=== PATIENT | male | born 1960 | race Caucasian/White ===

== ENCOUNTER 2018-04-07 23:06 | Observation (INO) | payer MEDICAID ==
[~2018-04-07] VITALS: Ht 172.7 cm; Wt 82.8 kg
[2018-04-07] MEDS ORDERED: ESCI20TA PO (23:21)
[2018-04-07] MEDS ORDERED: LORA10TA62 PO (23:21)
[2018-04-07] MEDS ORDERED: TAMS0.4C2 PO (23:21)
[2018-04-07] MEDS ORDERED: LEVO112T4 PO (23:21)
[2018-04-07] MEDS ORDERED: ATOR40TA78 PO (23:22)
[2018-04-07] MEDS ORDERED: GABA300C10 PO (23:22)
[2018-04-07] MEDS ORDERED: METH750T2 PO (23:22)
[2018-04-07] MEDS ORDERED: KETOROLAC 30 MG/1 ML IVPush ONE (23:30)
--- NOTE | 2018-04-07 23:42 | NUR ---
TASK RN: BP EQUAL BILAT. SECOND PIV INITIATED, LABS DRAWN. NSR ON MONITOR. PT MEDICATED PER EMAR FOR PAIN Addendum: 04/08/18 at 0107 by LWEGENER PT MEDICATED BY PRIMARY ERIN VAZQUEZ
[2018-04-07] MEDS ORDERED: KETOROLAC 30 MG/1 ML ONE (23:44)
[2018-04-07 23:47] LABS: BASOPHILS # (AUTO) 0.07 x10^3/uL (0-0.1); BASOPHILS % (AUTO) 1 % (0-1); EOSINOPHILS # (AUTO) 0.14 x10^3/uL (0-0.4); EOSINOPHILS % (AUTO) 2 % (1-7); LYMPHOCYTES # (AUTO) 2.21 x10^3/uL (1-3.4); LYMPHOCYTES % (AUTO) 24 % (22-44); MD NO; MEAN CORPUSCULAR HEMOGLOBIN 34.7 pg (27.5-34.5); MEAN CORPUSCULAR HGB CONC 34.6 g/dL (33.2-36.2); MEAN CORPUSCULAR VOLUME 100.4 fL (81-97); MONOCYTES # (AUTO) 0.73 x10^3/uL (0.2-0.8); MONOCYTES % (AUTO) 8 % (2-9); NEUTROPHILS # (AUTO) 5.93 x10^3/uL (1.8-6.8); NEUTROPHILS % (AUTO) 65 % (42-75); PLATELET COUNT 273 x10^3/uL (130-400); RED BLOOD COUNT 4.56 x10^6/uL (4.38-5.82); RED CELL DISTRIBUTION WIDTH 15.2 % (9.4-14.8)
[2018-04-07] MEDS ORDERED: TIOT4MIS3 INH (23:50)
--- NOTE | 2018-04-07 23:53 | NUR ---
PT REPORTS CENTER STABBING CHEST PAIN THAT GOES TO BACK 10/10 PAIN VS STABLE. ENVIRONMENTAL COMPLIANCE OFFICER ON. NSR NOTED. CALL LIGHT IN PLACE. WILL CONTINUE TO MONITOR.
[2018-04-08] LABS: ALANINE AMINOTRANSFERASE 33 U/L (12-78); ALBUMIN 4.3 g/dL (3.4-5.0); ANION GAP 7 mmol/L (5-15); CALCIUM 8.9 mg/dL (8.5-10.1); CHLORIDE 111 mmol/L (98-107)
[2018-04-08 00:04] LABS: ALKALINE PHOSPHATASE 60 U/L (45-117); BILIRUBIN,TOTAL 0.8 mg/dL (0.2-1.0); TOTAL PROTEIN 7.8 g/dL (6.4-8.2); TROPONIN I < 0.015 ng/mL (0.000-0.045)
[2018-04-08] MEDS ORDERED: ONDANSETRON 2MG/ML, 2ML ONE ×2 (00:08→11:54)
[2018-04-08] MEDS ORDERED: MORPHINE SULFATE 4 MG/ML, 1ML ONE (00:08)
--- NOTE | 2018-04-08 00:17 | NUR ---
TASK RN: PT REPORTS IMPROVEMENT IN PAIN WITH MEDICATIONS YET CONTINUES TO REPORT A HEAVY CHEST PRESSURE, "I FEEL LIKE A DUMP TRUCK IS ON ME" AND NAUSEA. ERP AWARE. ORDERS RECEIVED FOR PAIN/NAUSEA MEDICATIONS. REPEAT EKG COMPLETE
[2018-04-08] MEDS ORDERED: ONDANSETRON 2MG/ML, 2ML IVPush ONE (00:30)
[2018-04-08] MEDS ORDERED: SODIUM CHLORIDE FLUSH 10ML SYR IVF ONE (00:30)
[2018-04-08] MEDS ORDERED: MORPHINE SULFATE 4 MG/ML, 1ML IVPush PRN (00:30)
[2018-04-08] MEDS ORDERED: OMNIPAQUE 350 MG/ML, 100ML BOTTLE ONE (00:45)
--- NOTE | 2018-04-08 00:55 | NUR ---
PT RESTING IN ROOM. PLASTIC MANAGER ON. SINUS TACH NOTED. CALL LIGHT IN PLACE. WILL CONTINUE TO MONITOR.
--- NOTE | 2018-04-08 01:21 | NUR ---
NADINE LOZOYA IN ROOM UPDATING PATIENT.
--- NOTE | 2018-04-08 01:46 | NUR ---
FAMILY TOOK PT'S MEDS HOME REPORT CALLED INTO [facility] WHITLOCK
--- NOTE | 2018-04-08 01:49 | NUR ---
GIRLFRIEND PHONE NUMBER: [phone]
[2018-04-08 02:21] VITALS: BP 105/71
[2018-04-08] MEDS ORDERED: SODIUM CHLORIDE 0.9% 1,000 ML IV SCH (03:07)
[2018-04-08] MEDS ORDERED: morphine SULFATE 10 MG/ML, 1ML IVPush PRN (03:30)
[2018-04-08] MEDS ORDERED: OXYcodone IR 5MG TABLET PO PRN (03:30)
[2018-04-08] MEDS ORDERED: BISACODYL 10 MG SUPP PR PRN (03:30)
[2018-04-08] MEDS ORDERED: DOCUSATE 100 MG CAPSULE PO PRN (03:30)
[2018-04-08] MEDS ORDERED: hydrALAzine 20 MG/ML, 1ML IVPush PRN (03:30)
[2018-04-08] MEDS ORDERED: POLYETHYLENE GLYCOL 17 GM PACKET PO PRN (03:30)
[2018-04-08] MEDS ORDERED: ACETAMINOPHEN 325 MG TABLET PO PRN (03:30)
[2018-04-08] MEDS ORDERED: LABETALOL 5MG/ML, 20ML IVPush PRN (03:30)
[2018-04-08] MEDS ORDERED: PROMETHAZINE 25 MG/ML, 1ML IM PRN (03:30)
[2018-04-08] MEDS ORDERED: ONDANSETRON ODT 4 MG PO PRN (03:30)
[2018-04-08] MEDS ORDERED: ONDANSETRON 2MG/ML, 2ML IVPush PRN (03:30)
[2018-04-08] MEDS ORDERED: NITROGLYCERIN 0.4 MG BOTTLE (25 TABS) SL PRN (03:30)
[2018-04-08] MEDS ORDERED: GABAPENTIN 300 MG CAPSULE PO PRN (03:30)
[2018-04-08 03:44] LABS: HEMOGLOBIN A1C 5.3 % (4.2-6.3)
[2018-04-08] MEDS: GABAPENTIN 300 MG CAPSULE PO SCH ×4 (04:00→20:48)
[2018-04-08] MEDS: HEPARIN 5,000 UNITS/ML, 1ML SQ SCH ×3 (04:00→20:48)
[2018-04-08 04:02] LABS: FREE T4 (FREE THYROXINE) 0.59 ng/dL (0.76-1.46)
[2018-04-08] MEDS ORDERED: ALBUTEROL/IPRATROPIUM 2.5MG/0.5MG, 3 ML NPPB PRN (04:30)
[2018-04-08 05:21] LABS: TROPONIN I 0.017 ng/mL (0.000-0.045)
[2018-04-08] MEDS: ASPIRIN 325 MG TABLET EC PO SCH (05:38)
[2018-04-08] MEDS: ALBUTEROL/IPRATROPIUM 2.5MG/0.5MG, 3 ML NPPB SCH ×4 (06:15→19:20)
[2018-04-08] MEDS ORDERED: ALBUTEROL/IPRATROPIUM 2.5MG/0.5MG, 3 ML NPPB SCH (07:00)
[2018-04-08 07:44] VITALS: BP 94/64
[2018-04-08] MEDS ORDERED: LEVOTHYROXINE 112 MCG TABLET PO SCH (09:00)
[2018-04-08] MEDS ORDERED: REGADENOSON 0.4 MG/5 ML SYRINGE ONE (09:48)
[2018-04-08] MEDS: TAMSULOSIN 0.4 MG CAP.ER.24H PO SCH (09:50)
[2018-04-08] MEDS: METHOCARBAMOL 750 MG TABLET PO SCH ×3 (09:50→20:48)
[2018-04-08] MEDS: CITALOPRAM 20 MG TABLET PO SCH (09:50)
[2018-04-08] MEDS: LORATADINE 10 MG TABLET PO SCH (09:51)
[2018-04-08 13:11] LABS: TROPONIN I < 0.015 ng/mL (0.000-0.045)
[2018-04-08 14:29] VITALS: BP 94/62
[2018-04-08 15:38] LABS: ALBUMIN 3.5 g/dL (3.4-5.0); ANION GAP 7 mmol/L (5-15); CALCIUM 8.5 mg/dL (8.5-10.1); CHLORIDE 111 mmol/L (98-107); CREATININE 1.16 mg/dL (0.7-1.3)
[2018-04-08 15:42] LABS: TROPONIN I < 0.015 ng/mL (0.000-0.045)
[2018-04-08 19:13] VITALS: BP 95/62
[2018-04-08] MEDS ORDERED: ATORVASTATIN 40 MG TABLET PO SCH (21:00)
[2018-04-09 00:36] VITALS: BP 103/62
[2018-04-09] MEDS: ASPIRIN 325 MG TABLET EC PO SCH (05:17)
[2018-04-09] MEDS: HEPARIN 5,000 UNITS/ML, 1ML SQ SCH ×2 (05:18→13:00)
[2018-04-09] MEDS ORDERED: LEVOTHYROXINE 125 MCG TABLET PO SCH (06:00)
[2018-04-09 06:38] VITALS: BP 139/89
[2018-04-09] MEDS: ALBUTEROL/IPRATROPIUM 2.5MG/0.5MG, 3 ML NPPB SCH (06:44)
[2018-04-09 07:09] LABS: BASOPHILS # (AUTO) 0.08 x10^3/uL (0-0.1); BASOPHILS % (AUTO) 1 % (0-1); EOSINOPHILS # (AUTO) 0.19 x10^3/uL (0-0.4); EOSINOPHILS % (AUTO) 4 % (1-7); LYMPHOCYTES # (AUTO) 1.71 x10^3/uL (1-3.4); LYMPHOCYTES % (AUTO) 30 % (22-44); MD SCAN; MEAN CORPUSCULAR HEMOGLOBIN 33.9 pg (27.5-34.5); MEAN CORPUSCULAR HGB CONC 33.5 g/dL (33.2-36.2); MEAN CORPUSCULAR VOLUME 101.2 fL (81-97); MEAN PLATELET VOLUME 8.3 fL (7.4-10.4); MONOCYTES # (AUTO) 0.58 x10^3/uL (0.2-0.8); MONOCYTES % (AUTO) 10 % (2-9); NEUTROPHILS # (AUTO) 3.06 x10^3/uL (1.8-6.8); NEUTROPHILS % (AUTO) 54 % (42-75); PLATELET COUNT 228 x10^3/uL (130-400); RED BLOOD COUNT 3.92 x10^6/uL (4.38-5.82); RED CELL DISTRIBUTION WIDTH 14.8 % (9.4-14.8)
[2018-04-09 07:18] LABS: ALBUMIN 3.5 g/dL (3.4-5.0); ANION GAP 6 mmol/L (5-15); CALCIUM 8.5 mg/dL (8.5-10.1); CHLORIDE 111 mmol/L (98-107)
[2018-04-09 07:24] LABS: ALANINE AMINOTRANSFERASE 25 U/L (12-78); ALKALINE PHOSPHATASE 46 U/L (45-117); BILIRUBIN,TOTAL 0.9 mg/dL (0.2-1.0); CHOL/HDL RATIO 4.5; CHOLESTEROL, TOTAL 231 mg/dL (140-239); CREATININE 0.95 mg/dL (0.7-1.3); HDL CHOL % 22 % (26-37); HDL CHOLESTEROL (DIRECT) 51 mg/dL (40-60); LDL CHOLESTEROL,CALCULATED 169 mg/dL (54-169); LDL/HDL RATIO 3.3 (0.5-3.0); TOTAL PROTEIN 6.5 g/dL (6.4-8.2); TRIGLYCERIDES 56 mg/dL (50-200); VLDL CHOLESTEROL 11 mg/dL (0-25)
[2018-04-09] MEDS: LORATADINE 10 MG TABLET PO SCH (07:56)
[2018-04-09] MEDS: CITALOPRAM 20 MG TABLET PO SCH (07:56)
[2018-04-09] MEDS: GABAPENTIN 300 MG CAPSULE PO SCH ×2 (07:56→16:00)
[2018-04-09] MEDS: TAMSULOSIN 0.4 MG CAP.ER.24H PO SCH (07:56)
[2018-04-09] MEDS: METHOCARBAMOL 750 MG TABLET PO SCH ×2 (07:56→16:00)
[2018-04-09 12:00] VITALS: BP 110/76
[2018-04-09 12:02] VITALS: BP 127/78
[2018-04-09 12:04] VITALS: BP 114/79
[2018-04-09 13:54] VITALS: BP 105/71
[2018-04-09] MEDS ORDERED: NICO-486 TD (15:19)
[2018-04-09] MEDS ORDERED: ASPI-496 PO (15:19)
[2018-04-09] MEDS ORDERED: LEVO125T PO (15:19)
== END 2018-04-09 17:10 | disposition home or self-care (01) ==
LOC: ED 23:59 → INTOOBSV 04-08 01:25 → EDIP 04-08 01:25 → 5SO 04-08 02:05 → DCLOUNGE 04-09 16:50
PROVIDERS: ADMIT Internal Medicine; ATTEND Internal Medicine
DX: R07.89 Other chest pain (principal); E03.9 Hypothyroidism, unspecified; J44.9 Chronic obstructive pulmonary disease, unspecified; E78.5 Hyperlipidemia, unspecified; F32.9 Major depressive disorder, single episode, unspecified; D75.89 Other specified diseases of blood and blood-forming organs; N40.0 Benign prostatic hyperplasia without lower urinary tract symptoms; G62.9 Polyneuropathy, unspecified; E78.00 Pure hypercholesterolemia, unspecified; F12.10 Cannabis abuse, uncomplicated; I10 Essential (primary) hypertension; K44.9 Diaphragmatic hernia without obstruction or gangrene; Z72.0 Tobacco use
CPT/HCPCS: 36415; 71045; 71275; 78452; 80048; 80053; 80061; 82040; 83036; 83735; 83880; 84439; 84443; 84484; 85025; 85379; 93005; 93017; 93306; 94640; 96372; 96374; 96375; 96376; 97161; 99284; A9502; C9898; G0378; G8978; G8979; G8980; J1644; J1885; J2405; J2785; J7030; J7620; Q9967

== ENCOUNTER 2019-08-14 16:45 | Emergency (ER) | payer MEDICAID, OTHER ==
[~2019-08-14] VITALS: Ht 172.7 cm; Wt 81.2 kg
[~2019-08-14 16:45] MED LIST: ASPI-496 PO; ATOR40TA78 PO; ESCI20TA PO; GABA300C10 PO; LEVO112T4 PO; LEVO125T PO; LORA10TA62 PO; METH750T2 PO; NICO-486 TD; TAMS0.4C2 PO; TIOT4MIS3 INH
--- NOTE | 2019-08-14 16:57 | NUR ---
BIB [facility]. PT C/O TESTICULAR PAIN FOR LAST COUPLE HOURS. HX MULTIPLE HERNIAS, WITH 2 SURGICAL REPAIRMENTS. CLINICAL QUALITY ASSURANCE SPECIALIST [facility]: PIV 20G, 2MG MORPHINE, 4MG ZOFRAN. PT ASSISTED WITH REMOVAL OF PANTS AND COVERED WITH SHEET. PT CONNECTED TO MONITORING. CALL LIGHT IN REACH. AWAITING ORDERS AT THIS TIME.
[2019-08-14] MEDS ORDERED: MORPHINE SULFATE 4 MG/ML, 1ML ONE ×2 (17:07→19:17)
[2019-08-14] MEDS ORDERED: ONDANSETRON 2MG/ML, 2ML ONE ×2 (17:07→22:30)
[2019-08-14] MEDS: MORPHINE SULFATE 4 MG/ML, 1ML IVPush PRN ×2 (17:13→19:18)
--- NOTE | 2019-08-14 17:13 | NUR ---
MEDS ADMIN PER MAY. PT STATES HERNIA "FEELS LIKE IT'S BACK WHERE ITS SUPPOSED TO BE". CALL LIGHT IN REACH.
[2019-08-14] MEDS ORDERED: ONDANSETRON 2MG/ML, 2ML IVPush ONE ×2 (17:30→22:30)
--- NOTE | 2019-08-14 18:30 | NUR ---
BREAK RN: DISCUSSED POC WITH NADINE BROWN. PT MEDICATED FOR PAIN AND APPEARS TO BE RESTING COMFORTABLY ON GURNEY. PT REPORTS "I FEEL GOOD NOW" AND IS ATTEMPTING TO REDUCE HIS HERNIA ON HIS OWN. PER NADINE BROWN HE OR DR. HERNANDEZ WILL EVAL PT. PT ON CONT BP AND O2 MONITORS. CALL LIGHT WITHIN REACH.
--- NOTE | 2019-08-14 19:15 | NUR ---
PT CONTINUING TO WORK ON "GETTING HERNIA BACK IN PLACE".
--- NOTE | 2019-08-14 19:20 | NUR ---
PT C/O 01/01 PAIN. PRN PAIN BEAM RACKER PER MAY.
--- NOTE | 2019-08-14 19:58 | NUR ---
HOSPITALIST AT BEDSIDE TO ASSESS PT PROGRESS WITH HERNIA.
--- NOTE | 2019-08-14 20:07 | NUR ---
RECEIVED NEW ORDERS FOR LAB/CT/UA
--- NOTE | 2019-08-14 20:09 | NUR ---
PT GIVEN CUP TO PROVIDE URINE SAMPLE.
[2019-08-14] MEDS ORDERED: SODIUM CHLORIDE FLUSH 10ML SYR IVF ONE (20:30)
[2019-08-14 20:31] LABS: BASOPHILS # (AUTO) 0.06 x10^3/uL (0-0.1); BASOPHILS % (AUTO) 1 % (0-1); EOSINOPHILS # (AUTO) 0.21 x10^3/uL (0-0.4); EOSINOPHILS % (AUTO) 3 % (1-7); LYMPHOCYTES # (AUTO) 2.27 x10^3/uL (1-3.4); LYMPHOCYTES % (AUTO) 31 % (22-44); MD NO; MEAN CORPUSCULAR HGB CONC 33.5 g/dL (33.2-36.2); MEAN PLATELET VOLUME 7.8 fL (7.4-10.4); MONOCYTES # (AUTO) 0.47 x10^3/uL (0.2-0.8); MONOCYTES % (AUTO) 6 % (2-9); NEUTROPHILS # (AUTO) 4.43 x10^3/uL (1.8-6.8); NEUTROPHILS % (AUTO) 60 % (42-75); PLATELET COUNT 241 x10^3/uL (130-400); RED BLOOD COUNT 4.35 x10^6/uL (4.38-5.82); RED CELL DISTRIBUTION WIDTH 14.8 % (9.4-14.8)
[2019-08-14 20:41] LABS: ALBUMIN 4.1 g/dL (3.4-5.0); ANION GAP 5 mmol/L (5-15); CALCIUM 9.1 mg/dL (8.5-10.1); CHLORIDE 108 mmol/L (98-107); CREATININE 1.37 mg/dL (0.7-1.3)
--- NOTE | 2019-08-14 21:14 | NUR ---
PT GOING TO CT
[2019-08-14] MEDS ORDERED: ACETAMINOPHEN 500 MG TABLET ONE (21:48)
--- NOTE | 2019-08-14 21:53 | NUR ---
PT C/O SPEAR, MEDS ADMIN PER MAY. PT GOING TO US.
[2019-08-14] MEDS ORDERED: OMNIPAQUE 350 MG/ML, 100ML BOTTLE ONE (21:57)
[2019-08-14] MEDS ORDERED: ACETAMINOPHEN 500 MG TABLET PO ONE (22:00)
--- NOTE | 2019-08-14 22:14 | NUR ---
PT GIVEN ANOTHER CUP OF WATER TO FACILITATE URINE SAMPLE.
--- NOTE | 2019-08-14 22:15 | NUR ---
ALL RESULTS ARE BACK AT THIS TIME. CHART UP FOR RECHECK. PROVIDER STATES IT IS OK IF WE DON'T GET URINE PRIOR TO DC.
[2019-08-14 22:46] VITALS: BP 156/90
--- NOTE | 2019-08-14 22:53 | NUR ---
PT VOMITING . PROVIDER AWARE. IV ZOFRAN GIVEN. PT SLOWLY GETTING DRESSED, D/T PAIN AND NAUSEA. PT TO GET RIDE HOME FROM FRIEND.
== END 2019-08-14 23:14 | disposition home or self-care (01) ==
LOC: ED 19:43
DX: N43.3 Hydrocele, unspecified (principal); I10 Essential (primary) hypertension; F17.200 Nicotine dependence, unspecified, uncomplicated
CPT/HCPCS: 36415; 74177; 76870; 80048; 82040; 83605; 85025; 96374; 96375; 96376; 99285; J2270; J2405; Q9967